=== PATIENT | male | born 1965 | race Caucasian/White ===

== ENCOUNTER 2017-01-11 09:51 | Inpatient (IN) | payer OTHER ==
[~2017-01-11] VITALS: Ht 185.4 cm; Wt 108.8 kg
[~2017-01-11 09:51] MED LIST: ASPI81TA28 PO; B-COTAB18 PO; CMD/25 PO; ESCI1TAB10 PO; LISI20TA3 PO; METF1TAB85 PO; METO50TA7 PO
[2017-01-11 11:45] VITALS: BP 145/87; PULSE 83; TEMP 36.5; O2SAT 98; BMI 31.5
[2017-01-11] MEDS ORDERED: ACETAMINOPHEN 325 MG TAB PO PRN (12:00)
[2017-01-11 12:43] LABS: HEMATOCRIT 50.9 % (42-52); MEAN CELL VOLUME 93.7 fL (80-100); MEAN CORPUSCULAR HEMOGLOBIN 32.2 pg (25-34); MEAN PLATELET VOLUME 11.6 fL (7.4-10.4); PLATELET COUNT 167 K/uL (130-400); RED BLOOD COUNT 5.43 M/uL (4.7-6.1); WHITE BLOOD COUNT 9.15 K/uL (4.8-10.8)
[2017-01-11 12:44] LABS: MEAN CORPUSCULAR HGB CONC 34.4 g/dl (32-36)
[2017-01-11 12:53] LABS: INR 3.1 (0.9-1.1); PROTHROMBIN TIME (PATIENT) 34.7 SECONDS (9.0-12.0)
[2017-01-11 13:47] LABS: ALB/GLOB RATIO 1.5 (0.9-2); BUN/CREATININE RATIO 17.3 (10-20); CALCIUM 9.1 mg/dl (8.5-10.1); POTASSIUM 4.2 mmol/L (3.5-5.1)
[2017-01-11] MEDS ORDERED: DOFETILIDE 125 MCG CAP PO ONE (14:00)
[2017-01-11] MEDS ORDERED: WARFARIN SOD 2.5 MG TAB PO ONE (14:00)
[2017-01-11 15:37] VITALS: BP 100/65; PULSE 69; TEMP 36.6; O2SAT 96
[2017-01-11 16:00] VITALS: O2SAT 96
[2017-01-11] MEDS ORDERED: WARFARIN SOD 5 MG TAB PO SCH (16:00)
--- NOTE | 2017-01-11 19:23 | HISTORY & PHYSICAL EXAMINATION ---
DATE OF ADMISSION: 01/11/2017 CHIEF COMPLAINT: Shortness of breath, palpitations, paroxysmal atrial fibrillation for Tikosyn load. HISTORY OF PRESENT ILLNESS: This is a 51-year-old gentleman who I follow in my office due to paroxysmal atrial fibrillation. He was diagnosed about 14 years ago, for the most part had been doing well until this last year where he has had more episodes of palpitations as well as starting to have some lightheadedness, dizziness, shortness of breath, dyspnea on exertion and decreased activity levels. He has been on beta blockers but due to recurrent aFib was referred to cardiology for possible antiarrhythmic management. PAST MEDICAL HISTORY: Atrial fibrillation, paroxysmal; allergic rhinitis, carpal tunnel syndrome, and insomnia. PAST SURGICAL HISTORY: Carpal tunnel surgery. ALLERGIES: No known drug allergies. SOCIAL HISTORY: He is a lifelong nonsmoker, rare social alcohol use is a professor at [employer]. FAMILY HISTORY: Mother is alive in her 80s, does have atrial fibrillation and diabetes. Father is alive in his 80s, has hypertension. Brother with diabetes and 2 sisters with diabetes. REVIEW OF SYSTEMS: All other 10-point review of systems is reviewed and is essentially negative at this time. See HPI for pertinent positives. PHYSICAL EXAMINATION: VITAL SIGNS: Temperature 36.5 degree Celsius, heart rate 83, respirations 16, blood pressure 145/87, oxygen saturation 98% on room air. GENERAL: He is awake, alert and oriented x3, in no acute distress, sitting up comfortably in bed. HEENT: Normocephalic atraumatic. Extraocular motion intact. Sclerae is nonicteric. Mucous membranes moist. NECK: Supple, no carotid bruits appreciated. No JVD. Carotid upstrokes normal. CARDIOVASCULAR: irregular irregular S1, S2. No murmur appreciated. ABDOMEN: Soft and benign. PULMONARY: Clear to auscultation bilaterally. No wheezes, rales or rhonchi. EXTREMITIES: No clubbing or cyanosis bilateral fingers. No edema of the bilateral lower extremities. NEUROLOGIC: Grossly intact. SKIN: Grossly intact. LABORATORY STUDIES: Today: Hematology - WBC is 9.15, hemoglobin 17, hematocrit 50.9, platelets 167. Chemistries: Sodium 144, potassium 4.2, chloride 110, carbon dioxide 27, BUN 17, creatinine 1, glucose 117. LFTs within normal limits. INR is 3.1. IMAGING DATA: EKG today on admission is atrial fibrillation at 82 beats per minute with a QTC of 397. EKG back in my office in December 2016 - sinus isabella, 59 beats per minute, anterior CT, QRS 78 milliseconds, QTC 392 milliseconds. EKG in June 2016 - sinus rhythm, 61 beats per minute with a QTC of 392 milliseconds. A [employer] event monitor in November 2016 - the patient did have one episode of atrial fibrillation with a ventricular rate of 100-150. Exercise echocardiogram stress test in July 2016 and was negative for inducible ischemia. He exercised for 8 minutes and 16 seconds and achieved 82% of maximum predicted heart rate. There were no arrhythmias. The resting echocardiogram ejection fraction of 55-60% with grade 2 diastolic dysfunction, but no significant valvular pathology and no significant cardiac dilatation. Holter monitor in June 2016 for 24 hours was predominantly sinus rhythm, but he did have an episode of atrial fibrillation with some frequent APCs and 4 atrial runs, the longest being 5 beats and he had some PVCs and sometimes in a bigeminal pattern. IMPRESSION: 1. Paroxysmal atrial fibrillation diagnosed about 14 years ago, on Coumadin, Toprol. CHADS2-VASc score is 2. 2. sinus bradycardia 3. hypertension 4. hyperlipidemia 5. diabetes. PLAN: Recommend start Tikosyn initiation, stop his metoprolol. We will try Tikosyn 500 twice a day. He needs an EKG every 2 hours after each dose of Tikosyn to decide if the next Tikosyn dose needs to be adjusted. Will give him the lower dose of his Coumadin today since his INR is on the higher side and will check INRs daily. MTDD
[2017-01-11 20:00] VITALS: O2SAT 96
[2017-01-11 23:18] VITALS: BP 106/73; PULSE 60; TEMP 37; O2SAT 97
[2017-01-12] MEDS ORDERED: DOFETILIDE 125 MCG CAP PO SCH
[2017-01-12 04:44] VITALS: BP 116/74; PULSE 53; TEMP 36.7; O2SAT 96
[2017-01-12 06:43] LABS: PROTHROMBIN TIME (PATIENT) 33.6 SECONDS (9.0-12.0)
[2017-01-12] MEDS: ASPIRIN 81 MG ECTAB PO SCH (07:27)
[2017-01-12] MEDS: LISINOPRIL 20 MG TAB PO SCH (07:27)
[2017-01-12] MEDS: ESCITALOPRAM OXALATE 20 MG TAB PO SCH (07:27)
[2017-01-12] MEDS: VITAMIN B COMPLEX TAB PO SCH (07:27)
[2017-01-12 07:54] VITALS: BP 118/70; PULSE 59; TEMP 36.5; O2SAT 96
[2017-01-12] MEDS ORDERED: ATOR10TA82 PO (08:11)
[2017-01-12] MEDS ORDERED: NURSING VERBAL MED ORDER ONE ×3 (08:30→23:45)
--- NOTE | 2017-01-12 08:41 | Cardiology Follow-Up ---
Subjective Subjective Date of Service: January 12, 2017. Pt evaluation today including: conversation w/ patient, conversation w/ family , physical exam, chart review, lab review, review of studies, review of inpatient medication list Pain: none Problem List Medical Problems: (1) Anterior epistaxis Status: Acute Review of Systems Constitutional: No fatigue, No fever Respiratory: + shortness of breath, No cough Cardiac: + chest pain, No edema, No palpitations Abdomen: No diarrhea, No nausea Endo: No fatigue Objective Vital Signs Last Vital Signs Documentation Date Time Temp Pulse Resp B/P Pulse Ox O2 Delivery O2 Flow Rate FiO2 01/12/17 07:54 36.5 59 18 118/70 96 01/12/17 04:44 Room Air Physical Exam: General Appearance: WD/WN, no apparent distress Eyes: bilateral eyes EOMI, bilateral eyes PERRL Neck: no JVD Respiratory/Chest: lungs clear, normal breath sounds Cardiovascular: no edema, no JVD, no murmur, + irregularly irregular Abdomen: soft Extremities: no pedal edema Neurologic/Psychiatric: alert, oriented x 3 Skin: normal color, warm/dry Assessment and Plan Impression: 1. p atrial fibrillation; got 2 doses of tikosyn already due for his third this morning 2. HLD 3. HTN 4. DM Plan: -Continue with tikosyn give 500mcg this morning at 10am; this will be his 3rd dose -ECG 2 hours after the tikosyn to assess QTc -Coumadin 2.5mg today -continue to monitor on telemetry Discharge planning: home Medications: Medications Administered Medications (Trade) Dose Ordered Sig/Cherelle Route Start Time Stop Time Status Last Admin Dose Admin Aspirin (Ecotrin Tab) 81 mg DAILY PO 01/12/17 09:00 02/11/17 08:59 01/12/17 07:27 81 MG Escitalopram Oxalate (Lexapro Tab) 20 mg DAILY PO 01/12/17 09:00 02/11/17 08:59 01/12/17 07:27 20 MG Lisinopril (Zestril Tab) 20 mg DAILY PO 01/12/17 09:00 02/11/17 08:59 01/12/17 07:27 20 MG Vitamin B Complex (Vitamin B Complex) 1 tab DAILY PO 01/12/17 09:00 02/11/17 08:59 01/12/17 07:27 1 TAB Metformin HCl (Glucophage Extended Rel Tab) 1,000 mg DAILY PO 01/12/17 09:00 02/11/17 08:59 01/12/17 07:27 1,000 MG Dofetilide (Tikosyn) 500 mcg TODAY@0000 PO 01/12/17 00:00 01/12/17 00:01 DC 01/12/17 00:04 500 MCG Dofetilide (Tikosyn) 500 mcg ONE ONCE PO 01/11/17 14:00 01/11/17 14:01 DC 01/11/17 14:03 500 MCG Lab Results: ECG after 2nd tikosyn dose :AF QTc 435ms Telemetry: was in SR around 1am but then converted back to AF earlier this morning Last 24 Hours Test 01/11/17 12:30 01/12/17 06:23 White Blood Count 9.15 K/uL Red Blood Count 5.43 M/uL Hemoglobin 17.5 g/dL Hematocrit 50.9 % Mean Corpuscular Volume 93.7 fL Mean Corpuscular Hemoglobin 32.2 pg Mean Corpuscular Hemoglobin Concent 34.4 g/dl RDW Standard Deviation 45.5 fL RDW Coefficient of Variation 13.3 % Platelet Count 167 K/uL Mean Platelet Volume 11.6 fL Prothrombin Time 34.7 SECONDS 33.6 SECONDS Prothromb Time International Ratio 3.1 3.0 Sodium Level 144 mmol/L Potassium Level 4.2 mmol/L Chloride Level 110 mmol/L Carbon Dioxide Level 27 mmol/L Anion Gap 7.0 mmol/L Blood Urea Nitrogen 17 mg/dl Creatinine 1.00 mg/dl Est Creatinine Clear Calc Drug Dose 115.4 ml/min Estimated GFR () 102.0 Estimated GFR (Non- 88.0 BUN/Creatinine Ratio 17.3 Random Glucose 113 mg/dl Calcium Level 9.1 mg/dl Total Bilirubin 0.5 mg/dl Aspartate Amino Transf (AST/SGOT) 20 U/L Alanine Aminotransferase (ALT/SGPT) 47 U/L Alkaline Phosphatase 58 U/L Total Protein 7.2 gm/dl Albumin 4.3 gm/dl Globulin 2.9 gm/dl Albumin/Globulin Ratio 1.5
[2017-01-12] MEDS ORDERED: METFORMIN HCL 500 MG TABCR PO SCH (09:00)
[2017-01-12] MEDS ORDERED: DOFETILIDE 125 MCG CAP PO ONE ×2 (10:00→21:00)
[2017-01-12] MEDS: ATORVASTATIN 10 MG TAB PO SCH (10:02)
[2017-01-12 11:02] VITALS: Ht 185.4 cm; Wt 108.8 kg
[2017-01-12 11:42] VITALS: BP 117/74; PULSE 78; TEMP 36.8; O2SAT 96
[2017-01-12 15:37] VITALS: BP 121/79; PULSE 84; TEMP 36.7; O2SAT 96
[2017-01-12] MEDS ORDERED: WARFARIN SOD 2.5 MG TAB PO SCH (16:00)
--- NOTE | 2017-01-12 16:26 | Progress Note ---
Progress Note Date of Service January 12, 2017. Progress Note Pt currently in sinus rhythm; was in short burst of AF earlier this afternoon. QTc on ECG in SR 455ms on telemetry strip right now I calculated 355ms. Pt ok to get 4th dose of tikosyn 500mcg tonight at 9pm. ECG at 11pm to determine the 5th dose of tikosyn for tomorrow morning.
[2017-01-12] MEDS ORDERED: METFORMIN HCL 500 MG TABCR PO ONE (18:00)
[2017-01-12 19:49] VITALS: BP 127/80; PULSE 85; TEMP 36.6; O2SAT 95
[2017-01-12 23:51] VITALS: BP 106/70; PULSE 61; TEMP 36.5; O2SAT 96
[2017-01-13 04:02] VITALS: BP 113/71; PULSE 110; PULSE 60; TEMP 36.3; O2SAT 96
[2017-01-13 06:17] LABS: INR 2.5 (0.9-1.1); PROTHROMBIN TIME (PATIENT) 28.1 SECONDS (9.0-12.0)
[2017-01-13 08:03] VITALS: BP 118/77; PULSE 56; TEMP 36.8; O2SAT 95
[2017-01-13] MEDS: ASPIRIN 81 MG ECTAB PO SCH (08:11)
[2017-01-13] MEDS: METFORMIN HCL 500 MG TABCR PO SCH (08:11)
[2017-01-13] MEDS: ESCITALOPRAM OXALATE 20 MG TAB PO SCH (08:12)
[2017-01-13] MEDS: VITAMIN B COMPLEX TAB PO SCH (08:12)
[2017-01-13] MEDS: LISINOPRIL 20 MG TAB PO SCH (08:12)
[2017-01-13] MEDS: ATORVASTATIN 10 MG TAB PO SCH (08:13)
[2017-01-13] MEDS ORDERED: DOFETILIDE 125 MCG CAP PO SCH (09:00)
[2017-01-13 11:19] VITALS: BP 127/83; PULSE 63; TEMP 36.7; O2SAT 97
--- NOTE | 2017-01-13 13:51 | PROGRESS NOTE ---
DATE: 01/13/2017 FOLLOWUP VISIT SUBJECTIVE: The patient is a 51-year-old with history of paroxysmal atrial fibrillation who has been admitted for the start of antiarrhythmic therapy. He was started on Tikosyn 500 mg b.i.d. and has been able to receive all his doses. He has received a total of 5 doses so far. His QTC has been around 40. He continues to have brief episodes of PAF, but they seem to be lessening in frequency. His last episode was around 7:00 a.m. this morning. He has no complaints. OBJECTIVE: VITAL SIGNS: Blood pressure is 120/80, pulse is regular at 63. GENERAL: He is afebrile. HEENT: He is normocephalic. Pupils are equal and reactive to light. Extraocular muscles are intact bilaterally. NECK: The neck veins are flat. Carotids have good upstrokes bilaterally without bruits. Thyroid is nonpalpable. RESPIRATORY: Breath sounds equal bilaterally and clear to auscultation. CARDIOVASCULAR: Heart has a regular rhythm. Normal S1, S2. No S3, S4. No cardiac rubs or murmurs. GASTROINTESTINAL: Abdomen is soft, nontender without organomegaly. EXTREMITIES: Free of edema, digit clubbing, or cyanosis. NEUROLOGIC: Grossly intact. SKIN: Warm to touch. LYMPH NODES: Negative to palpation. IMPRESSION: 1. Paroxysmal atrial fibrillation. 2. Start of the antiarrhythmic medication. RECOMMENDATIONS: We will continue the Tikosyn at 500 mg b.i.d. He will have his sixth dose tonight and if all goes well, he may be discharged tomorrow.
[2017-01-13 15:36] VITALS: BP 158/80; PULSE 70; TEMP 36.4; O2SAT 96
[2017-01-13] MEDS: WARFARIN SOD 5 MG TAB PO SCH (15:50)
[2017-01-13 20:09] VITALS: BP 122/77; PULSE 64; TEMP 36.7; O2SAT 94
[2017-01-13] MEDS: DOFETILIDE 125 MCG CAP PO SCH (20:24)
[2017-01-13 23:17] VITALS: BP 131/80; PULSE 65; TEMP 36.6; O2SAT 95
[2017-01-14 03:59] VITALS: BP 142/84; PULSE 69; TEMP 36.6; O2SAT 97
[2017-01-14 06:10] VITALS: BP 134/87; PULSE 60; TEMP 36.3; O2SAT 94
[2017-01-14] MEDS ORDERED: NURSING VERBAL MED ORDER ONE ×2 (06:30→09:45)
[2017-01-14 07:21] LABS: INR 2.2 (0.9-1.1); PROTHROMBIN TIME (PATIENT) 24.1 SECONDS (9.0-12.0)
[2017-01-14] MEDS: ASPIRIN 81 MG ECTAB PO SCH (07:34)
[2017-01-14] MEDS: ATORVASTATIN 10 MG TAB PO SCH (07:34)
[2017-01-14] MEDS: VITAMIN B COMPLEX TAB PO SCH (07:34)
[2017-01-14] MEDS: ESCITALOPRAM OXALATE 20 MG TAB PO SCH (07:34)
[2017-01-14] MEDS: LISINOPRIL 20 MG TAB PO SCH (07:34)
[2017-01-14] MEDS: METFORMIN HCL 500 MG TABCR PO SCH (07:35)
[2017-01-14] MEDS: DOFETILIDE 125 MCG CAP PO SCH (09:45)
[2017-01-14 11:35] VITALS: BP 117/63; PULSE 58; TEMP 36.5; O2SAT 95
[2017-01-14] MEDS ORDERED: FEXO1TAB49 PO (13:50)
[2017-01-14] MEDS ORDERED: DOFE125C PO (14:00)
--- NOTE | 2017-01-14 14:01 | Discharge Instructions ---
Discharge Instructions Date of Service Jan 14, 2017. Admission Reason for Admission: Atrial Fibrillation Discharge Discharge Diagnosis / Problem: PAF Discharge Goals Goal(s): Improve function Activity Recommendations Activity Limitations: resume your previous activity . Instructions / Follow-Up Instructions / Follow-Up CHECK WITH PHARMACY OR MY OFFICE BEFORE STARTING ANY NEW MEDICATIONS F/U WITH ME IN 1 MONTH Current Hospital Diet Patient's current hospital diet: AHA Diet (Heart Healthy) Discharge Diet Recommended Diet: Diabetes Type 2 Diet Pending Studies Studies pending at discharge: no Medical Emergencies . Who to Call and When: Medical Emergencies: If at any time you feel your situation is an emergency, please call 911 immediately. . Non-Emergent Contact Non-Emergency issues call your: Lubrication Technician . . "Provider Documentation" section prepared by Jenny Gallego. . VTE Core Measure Inpt VTE Proph given/why not?: Warfarin (Coumadin)
[2017-01-14 14:37] LABS: BUN/CREATININE RATIO 15.3 (10-20); CREATININE 1.3 mg/dl (0.60-1.40); MAGNESIUM 2.1 mg/dl (1.8-2.4); POTASSIUM 4.2 mmol/L (3.5-5.1)
[2017-01-14 14:50] VITALS: BP 117/63; PULSE 58; TEMP 36.5; O2SAT 95
[2017-01-14] MEDS: WARFARIN SOD 5 MG TAB PO SCH (15:22)
--- NOTE | 2017-01-14 15:48 | Discharge Summary ---
Discharge Summary Date of Service Jan 14, 2017. Discharge Summary Admission Date: January 11, 2017 at 11:40 Discharge Date: Jan 14, 2017 Discharge Disposition: Home Principal Diagnosis: pAF Secondary Diagnoses/Problems: Sinus bradycardia HTN DM Medication Reconciliation New Medications: Dofetilide (Tikosyn) 125 Mcg Cap 500 MCG PO BID for 30 Days, #240 CAP Continued Medications: Aspirin (Aspirin Ec) 81 Mg Tab 81 MG PO DAILY Atorvastatin (Lipitor) 10 Mg Tab 10 MG PO DAILY, TAB B-Complex Vitamins (Vitamin B Complex) 1 Tab Tab 1 TAB PO DAILY Escitalopram Oxalate (Lexapro) 20 Mg Tab 20 MG PO DAILY, TAB Fexofenadine Hcl (Hoda Allergy) 180 Mg Tab 1 TAB PO DAILY for 30 Days, #30 TAB 2 Refills Lisinopril (Prinivil) 20 Mg Tab 20 MG PO DAILY, TAB Metformin Hcl (Metformin Hcl Er) 500 Mg Tab 2000 MG PO DAILY, TAB Warfarin Sod (Coumadin) 2.5 Mg Tab 5 MG PO 5XWK, TAB TAKE 2 TABLETS (5 MG) EVERY TUESDAY,TUESDAY,TUESDAY,TUESDAY AND TUESDAY OR OTHERWISE DIRECTED TO TAKE BY ANTICOAGULATION CLINIC/MD Warfarin Sod (Coumadin) 2.5 Mg Tab 2.5 MG PO 2XWK, TAB TAKE 2.5 MG EVERY TUESDAY AND TUESDAY OR OTHERWISE DIRECTED TO TAKE BY ANTICOAGULATION CLINIC/MD Discontinued Medications: Metoprolol Succ (Toprol Xl) (Toprol-Xl) 50 Mg Tabcr 50 MG PO DAILY, TAB Admission Information Physical Exam (per Admitting): aaox3, NAD NC/AT, EOMI Supple no JVD Irregular S1/S2, no murmur CTA b/l no w/r/r soft NT/ND No edema b/l LE No focal deficits skin intact Hospital Course Pt admitted for elective initiation of Tikosyn. He was monitored on telemetry and serial ECGs after each tikosyn dose. He was discharged home after his 7th dose. He went back into SR and maintained SR after his 4th dose of Tikosyn. He did not have any ventricular arrhythmias. The morning of discharge he did have some blocked APCs and a short number of PVCs-that fell after the T wave. Otherwise no ventricular arrhythmias. He did have some sinus bradycardia during the sleeping hours. He was discharged home on tikosyn 500mcg BID. His toprol is stopped. He will f/u in my office in 1 month. Total time spent on discharge = This includes examination of the patient, discharge planning, medication reconciliation, and communication with other providers. Discharge Instructions Speak with the pharmacist or my office before starting any new medications.
--- NOTE | 2017-01-14 15:53 | Cardiology Follow-Up ---
Subjective Subjective Date of Service: Jan 14, 2017. Pt evaluation today including: conversation w/ patient, physical exam, lab review, review of inpatient medication list Pain: none Additional Details: a few palpitations earlier this morning Problem List Medical Problems: (1) Anterior epistaxis Status: Acute Review of Systems Constitutional: No fever, No fatigue Respiratory: No cough, No shortness of breath Cardiac: + palpitations, No chest pain, No edema Abdomen: No nausea, No diarrhea Endo: No fatigue Objective Vital Signs Last Vital Signs Documentation Date Time Temp Pulse Resp B/P (MAP) Pulse Ox O2 Delivery O2 Flow Rate FiO2 01/14/17 14:50 36.5 58 16 95 Room Air 01/14/17 11:35 117/63 (81) Physical Exam: General Appearance: WD/WN, no apparent distress Eyes: bilateral eyes PERRL, bilateral eyes EOMI Neck: no JVD Respiratory/Chest: lungs clear, normal breath sounds Cardiovascular: regular rate, rhythm, no edema, no JVD, no murmur Abdomen: soft Extremities: no pedal edema Neurologic/Psychiatric: alert, oriented x 3 Skin: normal color, warm/dry Assessment and Plan Impression: 1. p atrial fibrillation; got 7th doses of tikosyn 2. Sinus bradycardia 3. PVC and APC 4. HLD 5. HTN 6. DM Plan: -Ok with discharge home today -Continue with tikosyn give 500mcg -Continue Coumadin -Pt instructed to check with pharmacist or my office before starting any new medications -F/u in my office within 1 month Discharge planning: home Medications: Medications Administered Medications (Trade) Dose Ordered Sig/Cherelle Route Start Time Stop Time Status Last Admin Dose Admin Aspirin (Ecotrin Tab) 81 mg DAILY PO 01/12/17 09:00 02/11/17 08:59 01/14/17 07:34 81 MG Escitalopram Oxalate (Lexapro Tab) 20 mg DAILY PO 01/12/17 09:00 02/11/17 08:59 01/14/17 07:34 20 MG Lisinopril (Zestril Tab) 20 mg DAILY PO 01/12/17 09:00 02/11/17 08:59 01/14/17 07:34 20 MG Vitamin B Complex (Vitamin B Complex) 1 tab DAILY PO 01/12/17 09:00 02/11/17 08:59 01/14/17 07:34 1 TAB Metformin HCl (Glucophage Extended Rel Tab) 1,000 mg DAILY PO 01/12/17 09:00 01/12/17 17:45 DC 01/12/17 07:27 1,000 MG Warfarin Sodium (Coumadin Tab) 2.5 mg WeSa@1600 PO 01/12/17 16:00 02/11/17 15:59 01/12/17 17:28 2.5 MG Warfarin Sodium (Coumadin Tab) 5 mg SuMoTuThFr@1600 PO 01/13/17 16:00 02/12/17 15:59 01/14/17 15:22 5 MG Dofetilide (Tikosyn) 500 mcg TODAY@0000 PO 01/12/17 00:00 01/12/17 00:01 DC 01/12/17 00:04 500 MCG Dofetilide (Tikosyn) 500 mcg ONE ONCE PO 01/11/17 14:00 01/11/17 14:01 DC 01/11/17 14:03 500 MCG Atorvastatin Calcium (Lipitor Tab) 10 mg QAM PO 01/12/17 09:00 02/11/17 08:59 01/14/17 07:34 10 MG Dofetilide (Tikosyn) 500 mcg TODAY@1000 ONCE PO 01/12/17 10:00 01/12/17 10:01 DC 01/12/17 10:03 500 MCG Dofetilide (Tikosyn) 500 mcg TODAY@2100 ONCE PO 01/12/17 21:00 01/12/17 21:01 DC 01/12/17 21:09 500 MCG Metformin HCl (Glucophage Extended Rel Tab) 1,000 mg ONE ONCE PO 01/12/17 18:00 01/12/17 18:01 DC 01/12/17 18:11 1,000 MG Metformin HCl (Glucophage Extended Rel Tab) 2,000 mg DAILY PO 01/13/17 09:00 02/12/17 08:59 01/14/17 07:35 2,000 MG Dofetilide (Tikosyn) 500 mcg TODAY@0900 PO 01/13/17 09:00 01/13/17 09:01 DC 01/13/17 09:00 500 MCG Dofetilide (Tikosyn) 500 mcg BID PO 01/13/17 21:00 02/12/17 20:59 Future hold 01/14/17 09:45 500 MCG Lab Results: Telemetry: SR QTc 460ms Blocked APCs earlier this morning and ventricular bigeminy very short run ECG: SR QTc 453ms Last 24 Hours Test 01/13/17 16:05 01/13/17 20:52 01/14/17 06:15 01/14/17 06:37 Bedside Glucose 103 mg/dl 110 mg/dl 118 mg/dl Prothrombin Time 24.1 SECONDS Prothromb Time International Ratio 2.2 Test 01/14/17 10:58 01/14/17 13:58 Bedside Glucose 99 mg/dl Sodium Level 141 mmol/L Potassium Level 4.2 mmol/L Chloride Level 107 mmol/L Carbon Dioxide Level 27 mmol/L Anion Gap 7.0 mmol/L Blood Urea Nitrogen 20 mg/dl Creatinine 1.30 mg/dl Est Creatinine Clear Calc Drug Dose 88.9 ml/min Estimated GFR () 74.3 Estimated GFR (Non- 64.1 BUN/Creatinine Ratio 15.3 Random Glucose 132 mg/dl Calcium Level 9.0 mg/dl Magnesium Level 2.1 mg/dl
== END 2017-01-14 15:40 | disposition home or self-care (01) | DRG 310 ==
LOC: C.2T 11:40
PROVIDERS: ADMIT Internal Medicine; ATTEND Internal Medicine
DX: I48.0 Paroxysmal atrial fibrillation (principal); I10 Essential (primary) hypertension; E11.9 Type 2 diabetes mellitus without complications; R00.1 Bradycardia, unspecified; Z79.82 Long term (current) use of aspirin; Z79.01 Long term (current) use of anticoagulants; F17.200 Nicotine dependence, unspecified, uncomplicated; Z82.49 Family history of ischemic heart disease and other diseases of the circulatory system; Z83.3 Family history of diabetes mellitus; E78.5 Hyperlipidemia, unspecified

== ENCOUNTER → 2017-06-10 | Outpatient (CLI) | payer OTHER ==
[~2017-06-10] MED LIST changes: +ATOR10TA82 PO; +DOFE125C PO; +FEXO1TAB49 PO; -METO50TA7 PO
--- NOTE | 2017-06-11 06:04 | PAP/PSG TECHNICIAN REPORT ---
[facility] Hvac/R Service Technician Polysomnogram Report Study name: None Report date: 06/11/2017 Study date: 06/10/2017 Referring Physician: Merle Early Name: LAURO ARMENDARIZ Interpreting Physician: Lauro Soliz M.D. Date of : 1965 Hvac/R Service Technician: MALINI Mcintyre. Sex: Male Age: 52 StudyType: PSG Weight: 246 lbs 16 inches Height: 52 years, Height 5' 11.5" Neck Circum: BMI: 33.83 Medications: LISINOPRIL 20 MG, ONE TOUCH ULTRA, TIKOSYN 500 MCG, METFORMIN ER 500 MG, LEXAPRO 20 MG, LIPITOR 10 MG, COUMADIN 2.5 MG, MARCY 180 MG, ALBUTEROL SULFATE HFA 108 Patient History PATIENT HAS HISTORY OF INSOMNIA, SNORING AND DAYTIME SLEEPINESS. HE ALSO HAS HISTORY OF HYPERTENSION AND ATRIL FIBRILLATION. HE IS HERE TODAY FOR AN EVALUATION FOR YVES. ESS = 18 RM 7 Parameters Monitored NPSG: E1-M2, E2-M1, Fp1-M2, Fp2-M1, F3-M2, F4-M2, F4-M1, C3-M2, C4-M2, C4-M1, O1-M2, O2-M2, O2-M1, T3-M2, T4-M1, P3-M2, P4-M1, CHIN1, CHIN2, HR, EKG, Legs, PFLOW, SNOR, FLOW, CFLOW, Tidal Volume, THOR, ABDO, SpO2, PLTH, CPRESS, ETCO2 Wave, ETCO2, pH Sleep Architecture Sleep Stages Time at Lights Off 10:42:37 PM STAGES Time (min.) TST (%) Time at Lights On 5:38:07 AM Wake 48.5 -- Total Recording Time (TRT) 416.00 min. N1 34.5 9 Total Sleep Period (TSP) 415.0 min. N2 251.5 69 Total Sleep Time (TST) 367.0min. N3 0.0 0 Awake Time 48.5 min. REM 81.0 22 Wake after Sleep Onset 48.0 min. Sleep Efficiency (SE) 88 % Sleep Onset Latency (MARY ANNE) 0.5 min. Number of Stage 1 Shifts None Awakenings 15 Stage Changes 76 Number of REM periods 5 REM 81.0 22 REM Latency 70.5 min. NREM 286.0 78 Body Position Analysis Supine Right Left Side Prone Vertical Total Sleep Time (min.) 415.5 0.0 0.0 0.00 0.0 0.0 Total Sleep Time (%) 100% 0% 0% 0 0% N/A% Total Sleep Time REM (min.) 81.0 0.0 0.0 None 0.0 0.0 Total Sleep Time NREM (min.) 286.0 0.0 0.0 None 0.0 0.0 Intermittent Wake (min.) 48.5 0.0 0.0 None 0.0 0.0 Total Sleep Period (%) 100% None None None None None Arousals Myoclonus (PLM) * Events Count Index Events Count Index Spontaneous 28 5 Events Awake (PLMW) 84 103.9 Respiratory 5 0.8 Events Asleep w/ Arousal (PLMA) 16 2.6 PLM 15 3 Events Asleep w/o Arousal (PLMS) 69 11.3 Snoring 8 1 Total Asleep 85 13.9 Total 56 9 Total 169 24 Respiratory Analysis * CA OA MA CH H RERA Total Count 0 0 0 0 43 4 43 Index 0.0 0.0 0.0 0 7.0 1 7.7 Mean Duration 0.0 0.0 0.0 0.00 16.8 14.5 16.6 Longest Duration 0.0 0.0 0.0 0.00 0.0 17.4 26.0 Respiratory Event Summary Total Supine ~Supine Right Left Prone REM NREM Apneas Count 0 0 N/A N/A N/A N/A 0 0 Index 0.0 0 N/A N/A N/A N/A 0 0 Hypopneas (4% Desat) Count 43 43 N/A N/A N/A N/A 28 15 Index 7.0 7.0 N/A N/A N/A N/A 20.7 3.1 Apneas & All Hypopneas Count 43 43 N/A N/A N/A N/A 28 15 Index 7.0 7 N/A N/A N/A N/A 20.7 3.1 Respiratory Events (Concrete Inspector+All Hyp+RERA) Count 43 47 N/A N/A N/A N/A 28 15 Index 7.7 8 N/A N/A N/A N/A 21.5 3.8 Respiratory Related Arousal Count 5 47 N/A N/A N/A N/A 2 3 Index 0.8 1 N/A N/A N/A N/A 1 1 Snoring Analysis Supine Right Left Prone REM NREM Total Snore duration 12.0 min Snores count 703 N/A N/A N/A 159 544 703 Snore mean duration 1.0 Sec Snores index 115 N/A N/A N/A 117.8 114.1 114.9 TST with snoring (%) 3.3% Desaturation Event Summary: Minimum %SpO2 Event Count Mean/Min/Max Duration(sec.) Desaturation Index % Time In Bed > 90 47 31.8 / 12.5 / 71.7 7.2 95.3 86 - 90 0 N/A 0.0 4.7 81 - 85 0 N/A 0.0 0.0 76 - 80 0 N/A 0.0 0.0 71 - 75 0 N/A 0.0 0.0 66 - 70 0 N/A 0.0 0.0 61 - 65 0 N/A 0.0 0.0 56 - 60 0 N/A 0.0 0.0 51 - 55 0 N/A 0.0 0.0 < 50 0 N/A 0.0 0.0 Total REM NREM Awake <50% 0.0 min. 0.0 min. 0.0 min. 0.0 min. 51 - 60% 0.0 min. 0.0 min. 0.0 min. 0.0 min. 61 - 70% 0.0 min. 0.0 min. 0.0 min. 0.0 min. 71 - 80% 0.0 min. 0.0 min. 0.0 min. 0.0 min. 81 - 90% 19.1 min. 11.2 min. 7.4 min. 0.5 min. 91 - 100% 390.7 min. 69.8 min. 278.5 min. 42.4 min. Average 93 92 93 94 Minimum SpO2 85 85 87 86 Desaturation Event Index 6.8 20.7 3.4 3.7 # Desat. Events below 89% 21 17 4 0 Time(%) with Saturation below 89% 0.8 0.7 0.1 0.1 Time(min.) with Saturation below 89% 3.4 2.7 0.4 0.3 Time (mins) REM (mins) NREM (mins) % of TST SpO2 Below 90% 35 25 N10 1.9 SpO2 Below 88% 10 0 0 0 Heart Rate Analysis Min (bpm) Max (bpm) Average (bpm) Awake 56 107 65 NREM 55 99 62 REM 57 99 64 Overall 55 99 63 Supplemental O2 Values Minimum O2 level: None Value Start Time End Time Hvac/R Service Technician Comments Mr. Armendariz slept in the supine positions. EKG irregular at times. PAC's noted. Leg movements noted. No bruxism noted. Snoring was noted and scored as a 4 on a scale of 1 through 5. (0=no snoring, 5=snoring loud enough to be heard through a closed door or down the chang way) Mr. Armendariz awoke to use the restroom 1 time during the night. Mr. Armendariz stated I slept as well as I do when I am in my own bed. The final report will be interpreted and signed by a sleep physician. The completed physician report will then be placed in the patient medical record. Therapy (cm H2O) 0 TIB (min.) 415.5 TST (min.) 367.0 Sleep Onset (min.) 0.5 REM Onset From Sleep (min.) 70.5 Sleep Efficiency % 88 Wakefulness (%) 12 Wakefulness (min.) 48.5 NREM 1 (%) 9 NREM 1 (min.) 34.5 NREM 2 (%) 69 NREM 2 (min.) 251.5 NREM 3 (%) 0 NREM 3 (min.) 0.0 REM (%) 22 REM (min.) 81.0 # Arousals 56 Arousal Index 9 # Snore 703 Snore Index 114.9 AHI 7.0 AHI Supine 7 AHI Non-Supine N/A NREM AHI 3.1 REM AHI 20.7 RDI 7.7 # Obstructive Apnea 0 # Central Apnea 0 # Mixed Apnea 0 # Hypopneas 43 RERAs 4 Total Respiratory Events 47 Time Below SpO2 89% (min.) 3.1 Mean NREM SpO2 (%) 93 Mean REM SpO2 (%) 92 Mean Sleep SpO2 (%) 92 Min NREM SpO2 (%) 87 Min REM SpO2 (%) 85 Position Supine (min.) 415.5 Position Non-supine (min.) 0.0 LM Index Sleep 13.9 LM Index NREM 14.9 LM Index REM 10.4 Mean Heart Rate (bpm) 63 Min Heart Rate (bpm) 55
--- NOTE | 2017-06-15 11:03 | POLYSOMNOGRAPH REPORT ---
CLINICAL DATA: This is a 52-year-old male with BMI of 33.8, referred by DERECK Stone and Dr. Valle with a history of insomnia, snoring, daytime sleepiness, and atrial fibrillation. His [place] sleepiness score was elevated at 18/24. SLEEP ARCHITECTURE: Total sleep period was 415 minutes. Total sleep time was 367 minutes divided between 286 minutes of non-REM sleep and 81 minutes of REM sleep. Sleep onset latency was 30 seconds. REM latency was 70.5 minutes. Sleep efficiency was 88%. Wake after sleep onset was 48 minutes. Sleep consisted of stage N1 9%, stage N2 69%, and REM 22%. AROUSAL DATA: Fifty six arousals recorded for an index of 9 per hour. Twenty eight were spontaneous. PLM DATA: Eighty five limb movements during sleep were noted for an index of 13.9 per hour with arousal index of 2.6 per hour. RESPIRATORY DATA: Mild sleep apnea was documented. The AHI was 7. There were 43 hypopneic episodes with a mean duration of 16.8 seconds. The RDI was 7.7. There were 4 RERAs with the longest RERA being 17.4 seconds. OXIMETRY DATA: Mild hypoxemia was seen. Oxygen franci was 85% during REM. The mean saturation was 92%. Time below 88% was 10 minutes. EKG: Heart ranged from 55-99 beats per minute. Frequent PACs were noted. INSIDE BARREL LATHE OPERATOR'S COMMENTS: The patient slept supine. Snoring was rated as severe, 4 on a scale of 1 through 5. He awoke once to use the restroom. IMPRESSION: Very mild sleep apnea/hypopnea with an AHI of 7 and an RDI of 7.7 with mild nocturnal hypoxemia. RECOMMENDATIONS: The patient may benefit from weight loss, use of an oral appliance, or a repeat sleep study with CPAP. Clinical correlation is needed. NOMI
== END | disposition home or self-care (01) ==
LOC: C.NEUR 21:00
PROVIDERS: ATTEND Nurse Practitioner Family
DX: G47.10 Hypersomnia, unspecified (principal); R06.83 Snoring; R06.81 Apnea, not elsewhere classified; E66.9 Obesity, unspecified; I10 Essential (primary) hypertension; E11.9 Type 2 diabetes mellitus without complications; I48.91 Unspecified atrial fibrillation

== ENCOUNTER → 2018-03-28 | Day surgery (SDC) | payer OTHER ==
[2018-03-23 08:09] VITALS: Ht 182.9 cm; Wt 106.8 kg
[~2018-03-28] VITALS: Ht 182.9 cm; Wt 106.8 kg
[~2018-03-28] MED LIST changes: -ASPI81TA28 PO; +ATROPINE SULFATE 0.1 MG/ML 5ML SYR IV PRN; -DOFE125C PO; +DOFE500C PO; +EMPA1TAB PO; +EpHEDrine SULFATE INJ 50 MG/ML AMP IV PRN; +GLC/500 PO; +LIDOCAINE HCL 2% 2 ML VIAL (20MG/ML) ONE; -METF1TAB85 PO; +MIDAZOLAM HCL 1 MG/ML 2ML VIAL ONE; +ONDANSETRON INJ 2 MG/ML 2 ML VIAL ONE; +PROPOFOL IV EMULSION 10 MG/ML 20 ML VIAL ONE; +SODIUM CHLORIDE 0.9% 500ML 500 ML IV ONE; +VNTHFA/IN INH
--- NOTE | 2018-03-28 12:19 | Endo History and Physical ---
History & Physical Date of Service: Mar 28, 2018. Chief Complaint: Screening Referring Physician: Belkys Douglass History of Present Illness screening colonoscopy Past Surgical History Hx Cardiac Surgery: Yes (CARDIAC ABLATION X 2) Hx Internal Defibrillator: No Hx Pacemaker: No Hx Abdominal Surgery: No Hx of Implantable Prosthesis: No Hx Post-Op Nausea and Vomiting: No Hx Cancer Surgery: No Hx Thoracic Surgery: No Hx Orthopedic: Yes (LEFT ARM CTR/EBLOW NERVE RELEASE) Hx Urinary Tract Surgery: No Family History None Social History Smoking Status: Never Smoker Hx Substance Use: No Hx Alcohol Use: No Allergies Coded Allergies: No Known Allergies (Verified , 03/28/18) Current Medications Reported Home Medications Medications Dose Route/Sig Max Daily Dose Days Date Category Dose Instructions Ventolin Hfa (Albuterol) 200 Puffs/71068 Mcg Aers 2-4 Puffs INH Q6H PRN 03/23/18 Reported Lipitor (Atorvastatin Calcium) 10 Mg Tab 10 Mg PO QPM 03/23/18 Reported Glucophage (Metformin Hcl) 500 Mg Tab 4 Tab PO QPM 03/23/18 Reported Tikosyn (Dofetilide) 500 Mcg Cap 1 Cap PO BID 03/23/18 Reported Vitamin B Complex (B-Complex Vitamins) 1 Tab Tab 1 Tab PO QAM 03/23/18 Reported Hoda Allergy (Fexofenadine Hcl) 180 Mg Tab 1 Tab PO QAM 03/23/18 Reported Lexapro (Escitalopram Oxalate) 20 Mg Tab 20 Mg PO QAM 03/23/18 Reported Jardiance (Empagliflozin) 10 Mg Tab 1 Tab PO QAM 03/23/18 Reported Coumadin (Warfarin Sod) 2.5 Mg Tab 2.5 Mg PO WK 08/05/16 Reported TAKES WEEKLY ON SATURDAYS Coumadin (Warfarin Sod) 2.5 Mg Tab 5 Mg PO 6XWK 08/05/16 Reported TAKES 2 TABS EVERY DAY EXCEPT FOR SATURDAYS Prinivil (Lisinopril) 20 Mg Tab 20 Mg PO QAM 08/05/16 Reported Vital Signs Weight (Kilograms): 106.82 Height (Feet): 6 Height (Inches): 0 Date Time Temp Pulse Resp B/P (MAP) Pulse Ox O2 Delivery O2 Flow Rate FiO2 03/28/18 12:11 36.4 66 20 141/72 (95) 97 Room Air Physical Exam General Appearance: no apparent distress Respiratory/Chest: Auscultation: breath sounds normal Cardiovascular: Heart Auscultation: no murmurs Abdomen: Inspection & Palpation: soft Assessment and Plan stable for colonoscopy
--- NOTE | 2018-03-28 14:10 | GI REPORT ---
Patient Name: John Borjas Procedure Date: 03/28/2018 1:12 PM Date of : 1965 Admit Type: Outpatient Age: 52 Gender: Male Attending MD: Alfredo Cerna MD Procedure: Colonoscopy Providers: Alfredo Cerna MD Referring MD: Belkys Rey Indications: Screening for colorectal malignant neoplasm Medicines: Monitored Anesthesia Care Complications: No immediate complications. Estimated Blood Loss: Estimated blood loss: none. Procedure: Pre-Anesthesia Assessment: - Prior to the procedure, a History and Physical was performed, and patient medications and allergies were reviewed. The patient is competent. The risks and benefits of the procedure and the sedation options and risks were discussed with the patient. All questions were answered and informed consent was obtained. Patient identification and proposed procedure were verified by the physician and the nurse in the procedure room. Mental Status Examination: alert and oriented. Airway Examination: normal oropharyngeal airway and neck mobility. Respiratory Examination: clear to auscultation. CV Examination: normal. ASA Grade Assessment: III - A patient with severe systemic disease. After reviewing the risks and benefits, the patient was deemed in satisfactory condition to undergo the procedure. The anesthesia plan was to use monitored anesthesia care (MAC). Immediately prior to administration of medications, the patient was re-assessed for adequacy to receive sedatives. The heart rate, respiratory rate, oxygen saturations, blood pressure, adequacy of pulmonary ventilation, and response to care were monitored throughout the procedure. The physical status of the patient was re-assessed after the procedure. After I obtained informed consent, the scope was passed under direct vision. Throughout the procedure, the patient's blood pressure, pulse, and oxygen saturations were monitored continuously. The On-site loaner was introduced through the anus and advanced to the terminal ileum. The colonoscopy was performed without difficulty. The patient tolerated the procedure well. The quality of the bowel preparation was good. The terminal ileum, ileocecal valve, appendiceal orifice, and rectum were photographed. Findings: The perianal and digital rectal examinations were normal. The terminal ileum appeared normal. Two sessile polyps were found in the ascending colon and cecum. The polyps were 5 mm in size. These polyps were removed with a cold snare. Resection and retrieval were complete. Verification of patient identification for the specimen was done by the physician and nurse using the patient's name and date. Many small-mouthed diverticula were found in the sigmoid colon and descending colon. Non-bleeding internal hemorrhoids were found during retroflexion. The hemorrhoids were small. Impression: - The examined portion of the ileum was normal. - Two 5 mm polyps in the ascending colon and in the cecum, removed with a cold snare. Resected and retrieved. - Diverticulosis in the sigmoid colon and in the descending colon. - Non-bleeding internal hemorrhoids. Recommendation: - Discharge patient to home. - Await pathology results. - Repeat colonoscopy in 5 years for surveillance. - Return to referring physician. Alfredo Cerna MD 03/28/2018 2:10:31 PM This report has been signed electronically. Note Initiated On: 03/28/2018 1:12 PM Number of Addenda: 0 I attest to the content of the Intraoperative Record and orders documented therein, exceptions below {[id number]}
--- NOTE | 2018-03-28 14:23 | Discharge Instructions ---
Endoscopy Patient Instructions Date / Procedure(s) Performed Mar 28, 2018. Colonoscopy Allergy Information Coded Allergies: No Known Allergies (Verified , 03/28/18) Discharge Date / Findings Mar 28, 2018. Two small polyps removed Diverticulosis Hemorrhoids Medication Instructions Stopped Medication(s): Coumadin Provider Instructions Activity Restrictions - No exercising or heavy lifting for 24 hours. - Do not drink alcohol the day of the procedure. - Do not drive a car or operate machinery until the day after the procedure. - Do not make any important decisions or sign important papers in 24 hours after the procedure. Following Day: - Return to full activity which may include returning to work/school. Diet Start your diet with liquids and light foods (jello, soup, juice, toast). Then eat your usual diet if not nauseated. Treatment For Common After Affects For mild abdominal pain, bloating, or excessive gas: - Rest - Eat lightly - Lie on right side Follow-Up Information Follow-up with Belkys Douglass as scheduled Anesthesia Information What You Should Know You have had a procedure that required some medicine to reduce anxiety and discomfort. This treatment is called moderate sedation. After receiving the treatment, you may be sleepy, but you will be able to breathe on your own. The effects of the treatment may last for several hours. Follow these instructions along with Activity/Diet recommendations noted above: * Do NOT do anything where dizziness or clumsiness would be dangerous. * Rest quietly at home today, then you can be up and about tomorrow. * Have a responsible person stay with you the rest of today. * You may have had an I.V. today. If so, you may take the dressing off later today. Recommendations Call your doctor if: * Trouble breathing * Continuous vomiting for more than 24 hours * Temperature above 101 degrees * Severe abdominal pain or bloating * Pain not relieved by pain medicine ordered * There is increased drainage or redness from any incision * A large amount of rectal bleeding greater than 2-3 tablespoons. (If you had a polyp/s removed or have hemorrhoids, a small amount of blood - from the rectum is to be expected.) * You have any unanswered questions or concerns. IN THE EVENT OF A SERIOUS EMERGENCY, GO TO THE NEAREST EMERGENCY ROOM Your discharge instructions were prepared by provider Alfredo Cerna. Patient Instructions Signature Page John Borjas Patient (or Guardian) Signature/Date: I have read and understand the instructions given to me by my caregivers. Caregiver/RN/Doctor Signature/Date: The above-named patient and/or guardian has received patient instructions on this date. + Original Patient Signature Page (only) stays with chart. Please make copy for patient.
[2018-03-28 14:38] VITALS: BP 114/70; PULSE 62; O2SAT 98
--- NOTE | 2018-03-28 14:40 | Anesthesiology Progress Note ---
Anesthesia Post Op Note Date & Time Mar 28, 2018 at 14:40 Vital Signs Vital Signs Past 12 Hours Date Time Temp Pulse Resp B/P (MAP) Pulse Ox O2 Delivery O2 Flow Rate FiO2 03/28/18 14:38 62 20 114/70 (85) 98 Room Air 03/28/18 14:23 61 20 116/64 (81) 97 Room Air 03/28/18 14:09 36.6 62 20 108/59 (75) 97 Room Air 03/28/18 12:11 36.4 66 20 141/72 (95) 97 Room Air Notes Mental Status: alert / awake / arousable, participated in evaluation Pt Amnestic to Procedure: Yes Nausea / Vomiting: adequately controlled Pain: adequately controlled Airway Patency, RR, SpO2: stable & adequate BP & HR: stable & adequate Hydration State: stable & adequate Anesthetic Complications: no major complications apparent
== END | disposition home or self-care (01) ==
LOC: C.GI 11:34
PROVIDERS: ATTEND Student in an Organized Health Care Education/Training Program
DX: Z12.11 Encounter for screening for malignant neoplasm of colon (principal); K63.5 Polyp of colon; K57.30 Diverticulosis of large intestine without perforation or abscess without bleeding; K64.8 Other hemorrhoids; J45.909 Unspecified asthma, uncomplicated; J44.9 Chronic obstructive pulmonary disease, unspecified; G47.33 Obstructive sleep apnea (adult) (pediatric); I10 Essential (primary) hypertension; E11.9 Type 2 diabetes mellitus without complications; Z68.31 Body mass index [BMI] 31.0-31.9, adult; Z79.01 Long term (current) use of anticoagulants; E66.9 Obesity, unspecified; I48.91 Unspecified atrial fibrillation